=== PATIENT | female | born 2000 | race American Indian/Alaskan Native ===

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

== ENCOUNTER 2018-08-12 21:43 | Emergency (ER) | payer MEDICAID ==
[2018-08-12 22:40] VITALS: BP 122/84
[2018-08-13] MEDS ORDERED: NACL 0.9% 1000 ML 1,000 ML ONE (01:01)
[2018-08-13 01:22] LABS: HCG Qualitative,Urine Negative (Negative)
[2018-08-13 01:23] LABS: Bilirubin,Urine NEG (Negative); Blood,Urine NEG (Negative); Color,Urine Yellow (Yellow); Mucus,Urine 2+ /HPF; Protein,Urine <15 mg/dL mg/dL (Negative)
[2018-08-13 01:47] LABS: Basophils % (Auto) 0.3 % (0.0-1.8); Eosinophils # (Auto) 0.1 K/mm3 (0.0-0.4); Eosinophils % (Auto) 0.8 % (0.0-4.3); Hematocrit 39.6 % (30.3-42.9); Hemoglobin 13.2 gm/dl (10.1-14.3); Lymphocytes # (Auto) 2.1 K/mm3 (1.2-5.4); Lymphocytes % (Auto) 33.6 % (13.4-35.0); Mean Corpuscular HGB Conc 34 % (30-34); Mean Corpuscular Volume 95 fl (79-97); Monocytes # (Auto) 0.5 K/mm3 (0.0-0.8); Monocytes % (Auto) 7.7 % (0.0-7.3); Platelet Count 247 K/mm3 (140-440); Red Blood Count 4.18 M/mm3 (3.65-5.03); Red Cell Distribution Width 14.9 % (13.2-15.2)
[2018-08-13] MEDS ORDERED: NACL 0.9% 1000 ML 1,000 ML IV ONE (01:53)
[2018-08-13 02:30] LABS: BUN/Creatinine Ratio 17; Blood Urea Nitrogen 12 mg/dL (7-17); Calcium 9.6 mg/dL (8.4-10.2); Hemolysis Index 6
--- NOTE | 2018-08-13 04:50 | Emergency Department Report ---
ED Syncope HPI - General Chief Complaint: Syncope Stated Complaint: WEAKNESS Time Seen by Provider: 08/13/18 01:28 - History of Present Illness Initial Comments: 17-year-old female presents to ED with a reported syncopal episode that happened yesterday. Patient states she got up from lying in bed, walked to the bathroom, began to feel dizzy and lightheaded and then passed out. She reports chest pain or shortness of breath at the time. Patient also reports irregular period, like to know if she is or not. Timing/Prior Episodes: remote history Precipitating Factors: Positive: blurred vision, lightheadedness Context: standing Loss of Consciousness: brief (seconds) Current Symptoms: back to normal - Related Data Allergies/Adverse Reactions: Allergies No Known Allergies Allergy (Verified 08/12/18 22:25) Home Medications: Ambulatory Orders No Known Home Medications [No Reported Home Medications] 08/13/18 ED Review of Systems ROS: Stated complaint: WEAKNESS Other details as noted in HPI Comment: All other systems reviewed and negative Constitutional: denies: chills, fever Respiratory: shortness of breath Cardiovascular: chest pain Gastrointestinal: denies: abdominal pain, vomiting Neurological: denies: headache, numbness ED Past Medical Hx - Past Medical History Previous Medical History?: No Additional medical history: Miscarriage 11-08-2017 - Surgical History Past Surgical History?: No - Social History Smoking Status: Former Smoker Substance Use Type: Marijuana - Medications Home Medications: Home Medications Medication Instructions Recorded Confirmed Last Taken Type No Known Home Medications [No 08/13/18 08/13/18 Unknown History Reported Home Medications] ED Physical Exam - General Limitations: No Limitations General appearance: alert, in no apparent distress - Head Head exam: Present: atraumatic, normocephalic - Eye Eye exam: Present: normal appearance, PERRL, EOMI - ENT ENT exam: Present: mucous membranes moist - Neck Neck exam: Present: normal inspection - Respiratory Respiratory exam: Present: normal lung sounds bilaterally. Absent: respiratory distress - Cardiovascular Cardiovascular Exam: Present: regular rate, normal rhythm - GI/Abdominal GI/Abdominal exam: Present: soft. Absent: distended, tenderness - Extremities Exam Extremities exam: Present: normal inspection - Neurological Exam Neurological exam: Present: alert, oriented X3, CN II-XII intact, normal gait. Absent: motor sensory deficit - Psychiatric Psychiatric exam: Present: normal affect, normal mood - Skin Skin exam: Present: warm, dry, intact, normal color. Absent: rash ED Course Vital Signs 08/12/18 08/13/18 22:25 03:31 Temperature 99.2 F Pulse Rate 94 H Respiratory 16 Rate Blood Pressure 122/84 O2 Sat by Pulse 97 99 Oximetry ED Medical Decision Making - Lab Data Result diagrams: 08/13/18 01:32 08/13/18 01:32 - EKG Data -: EKG Interpreted by Me EKG shows normal: sinus rhythm, axis, intervals, QRS complexes, ST-T waves Rate: normal - EKG Data Interpretation: no acute changes - Radiology Data Radiology results: report reviewed, image reviewed - Differential Diagnosis orthostatic hypotension, , dehydration Critical care attestation.: If time is entered above; I have spent that time in minutes in the direct care of this critically ill patient, excluding procedure time. ED Disposition Clinical Impression: Syncope, Dehydration, Orthostatic syncope Disposition: - TO HOME OR SELFCARE Is pt being admited?: No Condition: Stable Instructions: Syncope (ED) Referrals: PRIMARY CARE, [Primary Care Provider] - 3-5 Days [facility] [place] [Provider Group] - 3-5 Days Time of Disposition: 05:10
--- NOTE | 2018-08-13 05:02 | Cat Scan Report ---
FINAL REPORT PROCEDURE: CT ANGIO CHEST TECHNIQUE: Computerized axial tomographic angiography of the chest and pulmonary arteries was perfor med after the IV injection of iodinated nonionic contrast. The image data was postprocessed using max imum intensity projection (MIP) and 2-dimensional multiplanar reformatted (MPR) techniques. The exami nation is specifically tailored to the evaluation of the pulmonary arteries per clinical request. HISTORY: Short of breath 786.09, chest pain 786.50, syncope COMPARISON: No prior studies are available for comparison. FINDINGS: Heart and pericardium: Normal. Thoracic aorta: Normal. Pulmonary vasculature: Normal. No pulmonary emboli. Lymph nodes: No enlarged thoracic lymph nodes. Lungs: Normal. Pleural space: No effusion, thickening, or pneumothorax. Musculoskeletal structures: No significant abnormality. Upper abdominal structures: No significant abnormality. IMPRESSION: Normal Examination.
== END 2018-08-13 05:54 | disposition home or self-care (01) ==
LOC: ED 21:43
DX: R55 Syncope and collapse (principal); E86.0 Dehydration; F12.90 Cannabis use, unspecified, uncomplicated; Z87.891 Personal history of nicotine dependence
CPT/HCPCS: 36415; 71275; 80048; 81001; 81025; 84484; 85025; 85379; 93005; 93010; 96360; 99284; J7030; Q9967

== ENCOUNTER 2019-02-26 23:15 | Emergency (ER) | payer MEDICAID, OTHER ==
[2019-02-26 23:21] VITALS: BP 126/69
[2019-02-27 00:52] LABS: HCG Qualitative,Urine Negative (Negative)
[2019-02-27] MEDS ORDERED: LIDOCAINE VISCOUS 2% PO ONE (00:55)
[2019-02-27] MEDS ORDERED: BENTYL PO ONE (00:55)
[2019-02-27] MEDS ORDERED: ALUM-MAG HYDROX-SIMETH 200-200-20MG/5ML PO ONE (00:55)
--- NOTE | 2019-02-27 01:46 | Emergency Department Report ---
ED General Adult HPI - General Chief complaint: Chest Pain Stated complaint: CHEST PAIN/RT EYE SWOLLEN Time Seen by Provider: 02/27/19 00:39 Source: patient Mode of arrival: Ambulatory Limitations: No Limitations - History of Present Illness Initial comments: Patient is a 18-year-old female who presents the emergency room with complaints of chest pain that began several months ago. she describes the pain as a burning sensation. She states she has been seen at another emergency Department for the same discomfort. She denies any nausea, vomiting, fever, lower extremity edema. She states that she also has right eye swelling and pain that began a week ago. She states that she has had watery drainage from the right eye. She denies any contact use. Denies any vision problems. - Related Data Previous Rx's Medication Instructions Recorded Last Taken Type Erythromycin [Erythromycin Ophth 0.5 inch OP QID 5 Days #1 tube 02/27/19 Unknown Rx Oint] Famotidine [Pepcid] 20 mg PO BID #60 tablet 02/27/19 Unknown Rx Allergies Allergy/AdvReac Type Severity Reaction Status Date / Time No Known Allergies Allergy Verified 08/12/18 22:25 ED Review of Systems ROS: Stated complaint: CHEST PAIN/RT EYE SWOLLEN Other details as noted in HPI Comment: All other systems reviewed and negative ED Past Medical Hx - Past Medical History Previous Medical History?: Yes Additional medical history: Low potassium - Surgical History Past Surgical History?: No - Social History Smoking Status: Current Every Day Smoker Substance Use Type: None - Medications Home Medications: Home Medications Medication Instructions Recorded Confirmed Last Taken Type Erythromycin [Erythromycin Ophth 0.5 inch OP QID 5 Days #1 tube 02/27/19 Unknown Rx Oint] Famotidine [Pepcid] 20 mg PO BID #60 tablet 02/27/19 Unknown Rx ED Physical Exam - General Limitations: No Limitations General appearance: alert, in no apparent distress - Head Head exam: Present: atraumatic, normocephalic - Eye Eye exam: Present: PERRL, EOMI, other (edema and TTP over the right upper eyelid, no drainage present ) - ENT ENT exam: Present: mucous membranes moist - Respiratory Respiratory exam: Present: normal lung sounds bilaterally. Absent: respiratory distress, wheezes, rales, rhonchi, stridor, chest wall tenderness, accessory muscle use, decreased breath sounds, prolonged expiratory - Cardiovascular Cardiovascular Exam: Present: regular rate, normal rhythm, normal heart sounds. Absent: systolic murmur, diastolic murmur, rubs, gallop - Extremities Exam Extremities exam: Absent: pedal edema - Neurological Exam Neurological exam: Present: alert, oriented X3 - Psychiatric Psychiatric exam: Present: normal affect, normal mood - Skin Skin exam: Present: warm, dry, intact ED Course Vital Signs 02/26/19 02/27/19 23:18 02:17 Temperature 98.8 F Pulse Rate 78 Respiratory 18 18 Rate Blood Pressure 126/69 O2 Sat by Pulse 99 100 Oximetry ED Medical Decision Making - EKG Data EKG shows normal: sinus rhythm, axis, intervals, QRS complexes, ST-T waves Rate: normal - Radiology Data Radiology results: report reviewed CHEST 2 VIEWS COMPARISON: None available. FINDINGS: SUPPORT DEVICES: None. HEART / MEDIASTINUM: No significant abnormality. LUNGS / PLEURA: No significant pulmonary or pleural abnormality. No pneumothorax. ADDITIONAL FINDINGS: No significant additional findings. IMPRESSION: No acute findings. Signer Name: Julian Vasquez MD Signed: 02/27/2019 1:42 AM Workstation Name: [id number] Transcribed By: ERENDIRA Dictated By: Julian Vasquez MD Electronically Authenticated By: Julian Vasquez MD Signed Date/Time: 02/27/19 0142 - Medical Decision Making Patient is a 18-year-old female who presents the emergency room with complaints of chest pain that began several months ago. she describes the pain as a burning sensation. She states she has been seen at another emergency Department for the same discomfort. She denies any nausea, vomiting, fever, lower extremity edema. She states that she also has right eye swelling and pain that began a week ago. She states that she has had watery drainage from the right eye. She denies any contact use. Denies any vision problems. vitals are normal. EKG WNL. CXR is normal. pt given GI cocktail and discomfort resolved. eye exam ination consistent with internal hordeolum. pt given prescription for erythromycin ophthalmic ointment. pt given a prescription for pepcid due to acid reflux sx. advised to please use medication as prescribed. follow a diet for acid reflux. follow up with a primary care doctor in the next 2-3 days. return to the emergency room for any new or worsening symptoms. - Differential Diagnosis costochrondritis, GERD, arrhythmia, PTX Critical care attestation.: If time is entered above; I have spent that time in minutes in the direct care of this critically ill patient, excluding procedure time. ED Disposition Clinical Impression: Chest pain Qualifiers: Chest pain type: unspecified Qualified Code(s): R07.9 - Chest pain, unspecified Hordeolum Qualifiers: Hordeolum type: internum Laterality: right Eyelid: upper Qualified Code(s): H00.021 - Hordeolum internum right upper eyelid Disposition: - TO HOME OR SELFCARE Is pt being admited?: No Does the pt Need Aspirin: No Condition: Stable Instructions: Stye (ED), Diet for Ulcers and Gastritis (ED), Gastroesophageal Reflux Disease (ED) Additional Instructions: please use medication as prescribed. follow a diet for acid reflux. follow up with a primary care doctor in the next 2-3 days. return to the emergency room for any new or worsening symptoms. Prescriptions: Erythromycin [Erythromycin Ophth Oint] 0.5 inch OP QID 5 Days #1 tube Famotidine [Pepcid] 20 mg PO BID #60 tablet Referrals: MATTEO CHAVEZ JR, MD [Primary Care Provider] - 2-3 Days Forms: Work/School Release Form(ED) Time of Disposition: 02:02 Print Language: NEPALI
--- NOTE | 2019-02-27 01:47 | XRay Report ---
CHEST 2 VIEWS INDICATION / CLINICAL INFORMATION: Chest pain with burning sensation in chest and fainting spells for several months. GERD. COMPARISON: None available. FINDINGS: SUPPORT DEVICES: None. HEART / MEDIASTINUM: No significant abnormality. LUNGS / PLEURA: No significant pulmonary or pleural abnormality. No pneumothorax. ADDITIONAL FINDINGS: No significant additional findings. IMPRESSION: No acute findings. Signer Name: Julian Vasquez MD Signed: 02/27/2019 1:42 AM Workstation Name: [id number]
== END 2019-02-27 02:18 | disposition home or self-care (01) ==
LOC: ED 23:15
DX: R07.9 Chest pain, unspecified (principal); H00.021 Hordeolum internum right upper eyelid; F17.200 Nicotine dependence, unspecified, uncomplicated; Z79.2 Long term (current) use of antibiotics; Z79.899 Other long term (current) drug therapy
CPT/HCPCS: 71046; 81025; 93005; 93010

== ENCOUNTER 2019-06-23 10:29 | Emergency (ER) | payer SELFPAY ==
[2019-06-23 10:36] VITALS: BP 112/79
--- NOTE | 2019-06-23 11:29 | Emergency Department Report ---
ED Chest Pain HPI - General Chief Complaint: Chest Pain Stated Complaint: CHEST PAIN/FACE NUMB/BLUR VISION Time Seen by Provider: 06/23/19 11:22 Source: patient Mode of arrival: Ambulatory Limitations: No Limitations - History of Present Illness Initial Comments: Symone is 18 yo female with hx of GERD and low potassium who presents with 3 days of heartburn, left facial numbness, blurry vision and feeling faint. She has had poor diet recently with greasy foods. Symptoms have resolved. Stopped pepcid which was prescribed on previous ED visits. No PCP. Denies fever, palpitations, headache. According to EMR review, normal potassium in August. LMP 5 days ago June 18 MD Complaint: chest pain -: days(s) (3) Onset: during rest Pain Location: substernal Severity: mild Quality: other (burning) Consistency: now resolved Improves With: nothing Worsens With: nothing Other Symptoms: other (feeling faint blurry vision) - Related Data Previous Rx's Medication Instructions Recorded Last Taken Type Erythromycin [Erythromycin Ophth 0.5 inch OP QID 5 Days #1 tube 02/27/19 Unknown Rx Oint] Famotidine [Pepcid] 20 mg PO BID #60 tablet 02/27/19 Unknown Rx Omeprazole 20 mg PO DAILY 30 Days #30 06/23/19 Unknown Rx capsule. Potassium Chloride [K-Dur] 10 meq PO QDAY 14 Days #14 tablet 06/23/19 Unknown Rx Allergies Allergy/AdvReac Type Severity Reaction Status Date / Time No Known Allergies Allergy Verified 08/12/18 22:25 Heart Score - HEART Score History: Slightly suspicious EKG: Non-specific Age: < 45 Risk factors: No known risk factors Troponin: < normal limit HEART Score: 1 ED Review of Systems ROS: Stated complaint: CHEST PAIN/FACE NUMB/BLUR VISION Other details as noted in HPI Comment: All other systems reviewed and negative Constitutional: malaise Cardiovascular: chest pain ED Past Medical Hx - Past Medical History Previous Medical History?: Yes Hx GERD: Yes Additional medical history: Low potassium - Surgical History Past Surgical History?: No - Social History Smoking Status: Never Smoker Substance Use Type: None - Medications Home Medications: Home Medications Medication Instructions Recorded Confirmed Last Taken Type Erythromycin [Erythromycin Ophth 0.5 inch OP QID 5 Days #1 tube 02/27/19 Unknown Rx Oint] Famotidine [Pepcid] 20 mg PO BID #60 tablet 02/27/19 Unknown Rx Omeprazole 20 mg PO DAILY 30 Days #30 06/23/19 Unknown Rx capsule. Potassium Chloride [K-Dur] 10 meq PO QDAY 14 Days #14 tablet 06/23/19 Unknown Rx ED Physical Exam - General Limitations: No Limitations General appearance: alert, in no apparent distress, other (smiling, appears well) - Head Head exam: Present: atraumatic, normocephalic - Eye Eye exam: Present: normal appearance - ENT ENT exam: Present: mucous membranes moist - Neck Neck exam: Present: normal inspection, full ROM - Respiratory Respiratory exam: Present: normal lung sounds bilaterally. Absent: respiratory distress, wheezes, rales, rhonchi - Cardiovascular Cardiovascular Exam: Present: regular rate, normal rhythm, normal heart sounds. Absent: systolic murmur, diastolic murmur, rubs, gallop - GI/Abdominal GI/Abdominal exam: Present: soft, normal bowel sounds. Absent: distended, tenderness, guarding, rebound - Extremities Exam Extremities exam: Present: normal inspection - Back Exam Back exam: Present: normal inspection - Neurological Exam Neurological exam: Present: alert, oriented X3, CN II-XII intact, normal gait, motor sensory deficit, reflexes normal - Psychiatric Psychiatric exam: Present: normal affect, normal mood - Skin Skin exam: Present: warm, dry, intact, normal color. Absent: rash ED Course Vital Signs 06/23/19 10:35 Temperature 99.0 F Pulse Rate 98 H Respiratory 19 Rate Blood Pressure 112/79 O2 Sat by Pulse 99 Oximetry ED Medical Decision Making - EKG Data 06/23/19 11:29 EKG obtained 1041 Normal sinus rhythm rate 90 beats a minute normal axis normal QT intervals right bundle branch block T-wave abnormality in the anterior leads - Medical Decision Making Symone presents with heartburn generalized malaise feeling faint facial numbness. Symptoms can be explained with hypokalemia and GERD. I do not suspect PE, ACS, pericarditis or CVA with today's presentation. I'll prescribe omeprazole and potassium tablets. I did screen Symone for potential eating disorder. Her sister the bedside did confirm that she had regular intact of unhealthy fast food diet. I have referred her to outside clinic. Nonspecific EKG will need outpatient evaluation Critical care attestation.: If time is entered above; I have spent that time in minutes in the direct care of this critically ill patient, excluding procedure time. ED Disposition Clinical Impression: Heartburn Disposition: DC-01 TO HOME OR SELFCARE Is pt being admited?: No Does the pt Need Aspirin: No Condition: Stable Instructions: Diet for Ulcers and Gastritis (ED), Hypokalemia (ED) Prescriptions: Potassium Chloride [K-Dur] 10 meq PO QDAY 14 Days #14 tablet Omeprazole 20 mg PO DAILY 30 Days #30 capsule. Referrals: [facility] [Outside] - 3-5 Days Forms: Work/School Release Form(ED)
== END 2019-06-23 12:09 | disposition home or self-care (01) ==
LOC: ED 10:29
DX: R12 Heartburn (principal); R20.0 Anesthesia of skin; R55 Syncope and collapse
CPT/HCPCS: 93005; 93010; 99282

== ENCOUNTER 2019-08-25 16:43 | Emergency (ER) | payer SELFPAY ==
[2019-08-25 17:16] VITALS: BP 126/99
--- NOTE | 2019-08-25 17:16 | Emergency Department Report ---
Blank Doc - Documentation Documentation: 18-year-old female that presents chest pain and lower back pain. Stated has s ome SOB. This initial assessment/diagnostic orders/clinical plan/treatment(s) is/are subject to change based on patient's health status, clinical progression and re- assessment by fellow clinical providers in the ED. Further treatment and workup at subsequent clinical providers discretion. Patient/guardians urged not to elope from the ED as their condition may be serious if not clinically assessed and managed. Initial orders include: 1- Patient sent to [facility] for further evaluation and treatment 2- UA 3- EKG/CXR
[2019-08-25 18:07] LABS: HCG Qualitative,Urine Negative (Negative)
[2019-08-25 18:16] LABS: Bilirubin,Urine NEG (Negative); Blood,Urine NEG (Negative); Color,Urine Yellow (Yellow); Mucus,Urine FEW /HPF; Protein,Urine <15 mg/dL mg/dL (Negative); Urobilinogen,Urine < 2.0 mg/dL (<2.0)
--- NOTE | 2019-08-25 19:33 | XRay Report ---
CHEST 2 VIEWS INDICATION / CLINICAL INFORMATION: sob/cp. Chest pain with dyspnea. COMPARISON: None available. FINDINGS: SUPPORT DEVICES: None. HEART / MEDIASTINUM: No significant abnormality. LUNGS / PLEURA: No significant pulmonary or pleural abnormality. No pneumothorax. ADDITIONAL FINDINGS: No significant additional findings. IMPRESSION: 1. No acute findings. Signer Name: Seven Rivera MD Signed: 08/25/2019 7:29 PM Workstation Name: [id number]
[2019-08-25] MEDS ORDERED: LIDOCAINE VISCOUS 2% 15 ML ORAL LIQD PO ONE (21:19)
[2019-08-25] MEDS ORDERED: ALUM-MAG HYDROXIDE-SIMETHICONE 200-200-20MG/5ML ORAL LIQD 30 ML PO ONE (21:19)
[2019-08-25] MEDS ORDERED: DICYCLOMINE 20 MG TAB PO ONE (21:19)
--- NOTE | 2019-08-25 21:19 | Emergency Department Report ---
ED General Adult HPI - General Chief complaint: Back Pain/Injury Stated complaint: CHEST PAIN/POSS STD EXPOSURE Time Seen by Provider: 08/25/19 17:14 Source: patient Mode of arrival: Ambulatory Limitations: No Limitations - History of Present Illness Initial comments: patient is a 18-year-old female presents emergency room with complaints of intermittent chest pain for a year. She describes the pain as a burning and pressure sensation. She has a history of acid reflux. She is supposed to take omeprazole daily but is not compliant with the medication. She states that she has also had bilateral lower back discomfort for a year. She denies any fall, injury, numbness, weakness, nausea, vomiting, fever, urinary symptoms, leg swelling, recent travel, recent surgery, hormone use. She has a past medical history of GERD. She states that she has an allergy to NSAIDs. She states her last menstrual cycle was the end of July. Patient is also inquiring if we test for "diseases" I asked patient to clarify and she said routine STD testing, she denies any symptoms at all, no dysuria, no abdominal pain, no nausea, no vomiting, fever, she just wants routine testing. - Related Data Previous Rx's Medication Instructions Recorded Last Taken Type Erythromycin [Erythromycin Ophth 0.5 inch OP QID 5 Days #1 tube 02/27/19 Unknown Rx Oint] Famotidine [Pepcid] 20 mg PO BID #60 tablet 02/27/19 Unknown Rx Omeprazole 20 mg PO DAILY 30 Days #30 06/23/19 Unknown Rx capsule. Potassium Chloride [K-Dur] 10 meq PO QDAY 14 Days #14 tablet 06/23/19 Unknown Rx Omeprazole 20 mg PO DAILY #30 capsule. 08/25/19 Unknown Rx Allergies Allergy/AdvReac Type Severity Reaction Status Date / Time ibuprofen Allergy Unknown Verified 08/25/19 17:12 ED Review of Systems ROS: Stated complaint: CHEST PAIN/POSS STD EXPOSURE Other details as noted in HPI Comment: All other systems reviewed and negative ED Past Medical Hx - Past Medical History Hx GERD: Yes Additional medical history: Low potassium - Surgical History Past Surgical History?: No - Social History Smoking Status: Never Smoker Substance Use Type: None - Medications Home Medications: Home Medications Medication Instructions Recorded Confirmed Last Taken Type Erythromycin [Erythromycin Ophth 0.5 inch OP QID 5 Days #1 tube 07/21/19 Unknown Rx Oint] Famotidine [Pepcid] 20 mg PO BID #60 tablet 02/27/19 Unknown Rx Omeprazole 20 mg PO DAILY 30 Days #30 06/23/19 Unknown Rx capsule. Potassium Chloride [K-Dur] 10 meq PO QDAY 14 Days #14 tablet 06/23/19 Unknown R x Omeprazole 20 mg PO DAILY #30 capsule. 08/25/19 Unknown Rx ED Physical Exam - General Limitations: No Limitations General appearance: alert, in no apparent distress - Head Head exam: Present: atraumatic, normocephalic - Eye Eye exam: Present: normal appearance - ENT ENT exam: Present: mucous membranes moist - Neck Neck exam: Present: normal inspection, full ROM. Absent: tenderness - Respiratory Respiratory exam: Present: normal lung sounds bilaterally. Absent: respiratory distress, wheezes, rales, rhonchi, stridor, chest wall tenderness, accessory muscle use, decreased breath sounds, prolonged expiratory - Cardiovascular Cardiovascular Exam: Present: regular rate, normal rhythm, normal heart sounds. Absent: systolic murmur, diastolic murmur, rubs, gallop - GI/Abdominal GI/Abdominal exam: Present: soft, normal bowel sounds. Absent: distended, tenderness, guarding, rebound, rigid - Back Exam Back exam: Present: normal inspection, full ROM, other (pt is able to briskly be nd over and touch her toes, spine is well aligned). Absent: paraspinal tenderness, vertebral tenderness - Neurological Exam Neurological exam: Present: alert, oriented X3 - Psychiatric Psychiatric exam: Present: normal affect, normal mood - Skin Skin exam: Present: warm, dry, intact ED Course Vital Signs 08/25/19 17:14 Temperature 99 F Pulse Rate 86 Respiratory 16 Rate Blood Pressure 126/99 O2 Sat by Pulse 100 Oximetry ED Medical Decision Making - Lab Data Lab Results 08/25/19 Range/Units 17:32 Urine Color Yellow (Yellow) Urine Turbidity Clear (Clear) Urine pH 7.0 (5.0-7.0) Ur Specific [place] 1.015 (1.003-1.030) Urine Protein <15 mg/dl (Negative) mg/dL Urine Glucose (UA) Neg (Negative) mg/dL Urine Ketones Neg (Negative) mg/dL Urine Blood Neg (Negative) Urine Nitrite Neg (Negative) Ur Reducing Substances Not Reportable Urine Bilirubin Neg (Negative) Urine Ictotest Not Reportable Urine Urobilinogen < 2.0 (<2.0) mg/dL Ur Leukocyte Esterase Tr (Negative) Urine WBC (Auto) 3.0 (0.0-6.0) /HPF Urine RBC (Auto) 1.0 (0.0-6.0) /HPF U Epithel Cells (Auto) 4.0 (0-13.0) /HPF Urine Mucus Few /HPF Urine HCG, Qual Negative (Negative) - EKG Data EKG shows normal: sinus rhythm, axis, intervals, QRS complexes, ST-T waves Rate: normal - Radiology Data Radiology results: report reviewed CHEST 2 VIEWS INDICATION / CLINICAL INFORMATION: sob/cp. Chest pain with dyspnea. COMPARISON: None available. FINDINGS: SUPPORT DEVICES: None. HEART / MEDIASTINUM: No significant abnormality. LUNGS / PLEURA: No significant pulmonary or pleural abnormality. No pneumothorax. ADDITIONAL FINDINGS: No significant additional findings. IMPRESSION: 1. No acute findings. Signer Name: Seven Rivera MD Signed: 08/25/2019 7:29 PM Workstation Name: [id number] Transcribed By: BC Dictated By: Seven Rivera MD Electronically Authenticated By: Seven Rivera MD Signed Date/Time: 08/25/191928 DD/ 27 TD/TT: - Medical Decision Making patient is a 18-year-old female presents emergency room with complaints of intermittent chest pain for a year. She describes the pain as a burning and pressure sensation. She has a history of acid reflux. She is supposed to take omeprazole daily but is not compliant with the medication. She states that she has also had bilateral lower back discomfort for a year. She denies any fall, injury, numbness, weakness, nausea, vomiting, fever, urinary symptoms, leg swelling, recent travel, recent surgery, hormone use. She has a past medical history of GERD. She states that she has an allergy to NSAIDs. She states her last menstrual cycle was the end of July. Patient is also inquiring if we test for "diseases" I asked patient to clarify and she said routine STD testing, she denies any symptoms at all, no dysuria, no abdominal pain, no nausea, no vomiting, fever, she just wants routine testing. vitals are normal. UA is normal. Urine is negative. CXR and EKG ordered in triage and both are within normal limits. no paraspinal or midline spinal TTP of the back, no neuro deficits, no red flag warning signs of back pain, she has had it intermittently for a year. will refer the pt to the health department for routine STD testing. PERC criteria negative for PE. JONY and heart score is 0. Patient's chest di scomfort most likely related to her acid reflux. Patient given GI cocktail while in the emergency department. Discussed with patient the importance of being compliant with her omeprazole and dietary restrictions. Advised patient to please take medication as prescribed. Increase your water intake. Please follow the diet for acid reflux and ulcers. Please follow-up with a primary care doctor in the next 2-3 days. Please follow-up with a GI doctor if symptoms are not improving. please follow up with the health department for routine STD testing. may take tylenol for any discomfort. may use ice pack, heating pad, rest, epsom salt bath. Return to the emergency room for any new or worsening symptoms. - Differential Diagnosis GERD, PUD, costochrondritis, PTX, muscle strain, sciolosis, UTI Critical care attestation.: If time is entered above; I have spent that time in minutes in the direct care of this critically ill patient, excluding procedure time. ED Disposition Clinical Impression: Atypical chest pain GERD (gastroesophageal reflux disease) Qualifiers: Esophagitis presence: without esophagitis Qualified Code(s): K21.9 - Gastro- esophageal reflux disease without esophagitis Chronic lower back pain Qualifiers: Back pain laterality: bilateral Sciatica presence: without sciatica Qualified Code(s): M54.5 - Low back pain; G89.29 - Other chronic pain Disposition: DC-01 TO HOME OR SELFCARE Is pt being admited?: No Does the pt Need Aspirin: No Condition: Stable Instructions: Chest Pain (ED), Gastroesophageal Reflux Disease (ED), Diet for Ulcers and Gastritis (ED), Sexually Transmitted Diseases (ED), Safe Sex (ED) Additional Instructions: please be compliant with omeprazole and dietary restrictions. please take medication as prescribed. Increase your water intake. Please follow the diet for acid reflux and ulcers. Please follow-up with a primary care doctor in the next 2-3 days. Please follow-up with a GI doctor if symptoms are not improving. please follow up with the health department for routine STD testing. may take tylenol for any discomfort. may use ice pack, heating pad, rest, epsom salt bath. Return to the emergency room for any new or worsening symptoms. Prescriptions: Omeprazole 20 mg PO DAILY #30 capsule.dr Referrals: CHLOE CORTEZ MD [Staff Physician] - 2-3 Days [facility] [Outside] - 2-3 Days [facility] [Outside] - 2-3 Days [facility] [Provider Group] - 2-3 Days [facility] [Outside] - 2-3 Days Time of Disposition: 21:24 Print Language: GUATEMALAN
== END 2019-08-25 21:50 | disposition home or self-care (01) ==
LOC: ED 16:43
DX: K21.9 Gastro-esophageal reflux disease without esophagitis (principal); R07.89 Other chest pain; M54.5 Low back pain; G89.29 Other chronic pain
CPT/HCPCS: 71046; 81001; 81025; 93005; 93010; 99284

== ENCOUNTER 2019-12-13 12:10 | Emergency (ER) | payer SELFPAY ==
[2019-12-13 12:18] VITALS: BP 136/76
--- NOTE | 2019-12-13 13:05 | XRay Report ---
CHEST 2 VIEWS INDICATION / CLINICAL INFORMATION: Cough. COMPARISON: Chest x-ray on 08/25/2019. FINDINGS: SUPPORT DEVICES: None. HEART / MEDIASTINUM: No significant abnormality. LUNGS / PLEURA: No significant pulmonary or pleural abnormality. No pneumothorax. ADDITIONAL FINDINGS: No significant additional findings. IMPRESSION: 1. No acute findings. Signer Name: Ez Puente MD Signed: 12/13/2019 1:00 PM Workstation Name: [id number]
--- NOTE | 2019-12-13 14:19 | Emergency Department Report ---
- General Chief Complaint: Upper Respiratory Infection Stated Complaint: THROAT/BODY/STOMACH PAIN Time Seen by Provider: 12/13/19 12:27 Source: patient Mode of arrival: Ambulatory Limitations: No Limitations - History of Present Illness MD Complaint: sore throat -: days(s) Severity: moderate Quality: dull, aching Consistency: constant Improves With: nothing Worsens With: nothing Associated Symptoms: chills, myalgias, sore throat. denies: rhinorrhea Treatments Prior to Arrival: none - Related Data Previous Rx's Medication Instructions Recorded Last Taken Type Erythromycin [Erythromycin Ophth 0.5 inch OP QID 5 Days #1 tube 02/27/19 Unknown Rx Oint] Famotidine [Pepcid] 20 mg PO BID #60 tablet 02/27/19 Unknown Rx Omeprazole 20 mg PO DAILY 30 Days #30 06/23/19 Unknown Rx capsule. Potassium Chloride [K-Dur] 10 meq PO QDAY 14 Days #14 tablet 06/23/19 Unknown Rx Omeprazole 20 mg PO DAILY #30 capsule. 08/25/19 Unknown Rx Lidocaine Viscous 2% 5 ml MM Q3H PRN #120 udc 12/13/19 Unknown Rx Allergies Allergy/AdvReac Type Severity Reaction Status Date / Time ibuprofen Allergy Unknown Verified 08/25/19 17:12 ED Review of Systems ROS: Stated complaint: THROAT/BODY/STOMACH PAIN Other details as noted in HPI Comment: All other systems reviewed and negative ED Past Medical Hx - Past Medical History Previous Medical History?: Yes Hx GERD: Yes Additional medical history: Low potassium - Social History Smoking Status: Never Smoker Substance Use Type: None - Medications Home Medications: Home Medications Medication Instructions Recorded Confirmed Last Taken Type Erythromycin [Erythromycin Ophth 0.5 inch OP QID 5 Days #1 tube 02/27/19 Unknown Rx Oint] Famotidine [Pepcid] 20 mg PO BID #60 tablet 02/27/19 Unknown Rx Omeprazole 20 mg PO DAILY 30 Days #30 06/23/19 Unknown Rx capsule. Potassium Chloride [K-Dur] 10 meq PO QDAY 14 Days #14 tablet 06/23/19 Unknown Rx Omeprazole 20 mg PO DAILY #30 capsule. 08/25/19 Unknown Rx Lidocaine Viscous 2% 5 ml MM Q3H PRN #120 udc 12/13/19 Unknown Rx ED Physical Exam - General Limitations: No Limitations General appearance: alert, in no apparent distress - Head Head exam: Present: atraumatic, normocephalic - Eye Eye exam: Present: normal appearance, PERRL, EOMI Pupils: Present: normal accommodation - ENT ENT exam: Present: normal exam, normal orophraynx, mucous membranes moist - Neck Neck exam: Present: normal inspection - Respiratory Respiratory exam: Present: normal lung sounds bilaterally. Absent: respiratory distress, wheezes, rales, chest wall tenderness, accessory muscle use - Cardiovascular Cardiovascular Exam: Present: regular rate, normal rhythm. Absent: systolic murmur, diastolic murmur, rubs, gallop - GI/Abdominal GI/Abdominal exam: Present: soft, normal bowel sounds - Extremities Exam Extremities exam: Present: normal inspection - Back Exam Back exam: Present: normal inspection - Neurological Exam Neurological exam: Present: alert, oriented X3 - Psychiatric Psychiatric exam: Present: normal affect, normal mood - Skin Skin exam: Present: warm, dry, intact, normal color. Absent: rash ED Course Vital Signs 12/13/19 12:15 Temperature 99 F Pulse Rate 110 H Respiratory 16 Rate Blood Pressure 136/76 O2 Sat by Pulse 99 Oximetry ED Medical Decision Making - Medical Decision Making 19-year-old [place] female resents emerged department with odynophagia with a normal strep test symptoms suggestive of a viral infection i.e. mono she has no splenomegaly on examination but does have exudative pharyngitis with some mild lymphadenopathy plan is to treat her symptomology and have her to be reevaluated in 2 to 3 days Critical care attestation.: If time is entered above; I have spent that time in minutes in the direct care of this critically ill patient, excluding procedure time. ED Disposition Clinical Impression: Exudative pharyngitis Disposition: - TO HOME OR SELFCARE Is pt being admited?: No Does the pt Need Aspirin: No Condition: Stable Instructions: Mononucleosis (ED) Prescriptions: Lidocaine Viscous 2% 5 ml MM Q3H PRN #120 udc PRN Reason: Pain, Moderate (4-6) Referrals: PRIMARY CARE, [Primary Care Provider] - 3-5 Days CHLOE CORTEZ MD [Staff Physician] - 2-3 Days (Be sure to follow-up for evaluation to 3 days)
== END 2019-12-13 14:57 | disposition home or self-care (01) ==
LOC: ED 12:10
DX: J02.9 Acute pharyngitis, unspecified (principal); K21.9 Gastro-esophageal reflux disease without esophagitis; Z79.2 Long term (current) use of antibiotics; Z79.899 Other long term (current) drug therapy; Z88.8 Allergy status to other drugs, medicaments and biological substances
CPT/HCPCS: 71046; 87116; 87430; 99283

== ENCOUNTER 2021-04-06 19:49 | Emergency (ER) | payer SELFPAY | END 2021-04-06 20:00 | disposition left against medical advice (07) | LOC: ED 19:49 | DX: M79.602 Pain in left arm (principal); Z53.21 Procedure and treatment not carried out due to patient leaving prior to being seen by health care provider ==